=== PATIENT | male | born 1990 | race Caucasian/White ===

== ENCOUNTER 2024-03-25 20:18 | Emergency (ER) | payer SELFPAY ==
[2024-03-25 20:25] VITALS: BP 128/74; PULSE 72; RESP 18; TEMP 36.7; O2SAT 95; BMI 19.9
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
[2024-03-25 21:37] VITALS: BP 124/78; PULSE 76; RESP 16; O2SAT 98
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
[2024-03-25] MEDS: iohexol 350 mg/mL 500 mL Btl (per mL) IV (22:14)
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
[2024-03-25 22:45] VITALS: BP 131/71; PULSE 71; O2SAT 99
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
[2024-03-25 22:55] VITALS: BP 131/71; PULSE 69; O2SAT 98
== END 2024-03-25 22:56 | disposition home or self-care (01) ==
PROVIDERS: Emergency Provider Physician Assistant
DX: S40.012A Contusion of left shoulder, initial encounter (principal); S30.1XXA Contusion of abdominal wall, initial encounter; S70.312A Abrasion, left thigh, initial encounter; V86.56XA Driver of dirt bike or motor/cross bike injured in nontraffic accident, initial encounter
CPT/HCPCS: 70450; 71045; 72125; 73502; 74177; 99284; Q9967